=== PATIENT | female | born 1995 | race Caucasian/White ===

== ENCOUNTER 2016-11-09 21:19 | Emergency (ER) | payer MEDICAID ==
[2016-11-09 23:39] VITALS: BP 148/101
== END 2016-11-09 23:39 | disposition home or self-care (01) ==
LOC: ED 21:19
DX: S93.492A Sprain of other ligament of left ankle, initial encounter (principal); R03.0 Elevated blood-pressure reading, without diagnosis of hypertension; X50.1XXA Overexertion from prolonged static or awkward postures, initial encounter; Y93.39 Activity, other involving climbing, rappelling and jumping off; Y92.34 Swimming pool (public) as the place of occurrence of the external cause; Y99.8 Other external cause status
CPT/HCPCS: Q0092

== ENCOUNTER 2017-01-22 01:38 | Emergency (ER) | payer MEDICAID ==
[2017-01-22 02:37] VITALS: BP 148/92
== END 2017-01-22 02:37 | disposition home or self-care (01) ==
LOC: ED 01:38
DX: H60.92 Unspecified otitis externa, left ear (principal)

== ENCOUNTER 2017-01-25 08:42 | Emergency (ER) | payer MEDICAID ==
[~2017-01-25] VITALS: Ht 165.1 cm; Wt 151.9 kg
[2017-01-25 09:07] VITALS: BP 146/103
== END 2017-01-25 09:41 | disposition home or self-care (01) ==
LOC: ED 08:42
DX: H60.92 Unspecified otitis externa, left ear (principal)
CPT/HCPCS: J1170; Q0162

== ENCOUNTER 2017-07-12 01:48 | Inpatient (IN) | payer MEDICAID ==
[~2017-07-12] VITALS: Ht 165.1 cm; Wt 131.5 kg
[2017-07-12 01:59] VITALS: Ht 165.1 cm; Wt 131.5 kg
[2017-07-12 03:09] LABS: BASOPHIL % 0.7 % (0-2); PLATELET COUNT 294 x10^3mcL (130-400); RED CELL DISTRIBUTION WIDTH 14.2 % (11.5-14.5)
[2017-07-12 03:21] LABS: CALCIUM 8.8 mg/dL (8.5-10.1); CARBON DIOXIDE 24.1 mmol/L (21-32); CHLORIDE SERUM 107 mmol/L (98-107); CREATININE SERUM 0.6 mg/dL (0.6-1.0); GFR1 > 60 mL/min; GLUCOSE SERUM 150 mg/dL (74-106); POTASSIUM SERUM 3.6 mmol/L (3.5-5.1); SODIUM SERUM 143 mmol/L (136-145)
[2017-07-12 03:26] LABS: ALBUMIN 3.6 g/dL (3.4-5.0); ALKALINE PHOSPHATASE 69 U/L (46-116); ALT/SGPT 25 U/L (14-59); AST/SGOT 15 U/L (15-37); BILIRUBIN TOTAL 0.18 mg/dL (0.20-1.00); TOTAL PROTEIN, SERUM 7.8 g/dL (6.4-8.2)
[2017-07-12 04:16] LABS: FREE T4 0.92 ng/dL (0.76-1.46)
[2017-07-12 06:52] VITALS: BP 147/81
[2017-07-12 07:00] LABS: CHOLESTEROL/HDL RATIO 4.1; MAGNESIUM 1.8 mg/dL (1.8-2.4); PHOSPHOROUS 3.4 mg/dL (2.5-4.9)
[2017-07-12 07:11] LABS: T3 TOTAL 1.11 ng/mL
[2017-07-12 07:22] LABS: FREE T4 0.91 ng/dL (0.76-1.46); FREE THYROXINE INDEX 2.3 ug/dL (1.4-4.5)
[2017-07-12 10:33] VITALS: BP 142/77
== END 2017-07-12 11:54 | disposition left against medical advice (07) | DRG 54 ==
LOC: ED 01:48 → DU 05:57
PROVIDERS: Emergency Medicine; Student in an Organized Health Care Education/Training Program
DX: G44.209 Tension-type headache, unspecified, not intractable (principal); E02 Subclinical iodine-deficiency hypothyroidism; R00.0 Tachycardia, unspecified; R04.0 Epistaxis; E78.5 Hyperlipidemia, unspecified
CPT/HCPCS: 84439; J0696; J7030

== ENCOUNTER 2019-01-21 12:29 | Emergency (ER) | payer SELFPAY ==
[~2019-01-21] VITALS: Ht 162.6 cm; Wt 149.7 kg
[2019-01-21 12:38] VITALS: BP 150/83; Ht 162.6 cm; Wt 149.7 kg
== END 2019-01-21 14:00 | disposition home or self-care (01) ==
LOC: ED 12:29
DX: L70.0 Acne vulgaris (principal)

== ENCOUNTER 2019-06-11 23:48 | Emergency (ER) | payer OTHER ==
[~2019-06-11] VITALS: Ht 162.6 cm; Wt 155.6 kg
[2019-06-11 23:52] VITALS: Ht 162.6 cm; Wt 155.6 kg
[2019-06-12 02:15] VITALS: BP 142/84
== END 2019-06-12 02:15 | disposition home or self-care (01) ==
LOC: ED 23:48
DX: S30.0XXA Contusion of lower back and pelvis, initial encounter (principal); V49.9XXA Car occupant (driver) (passenger) injured in unspecified traffic accident, initial encounter; Y93.I9 Activity, other involving external motion; Y92.413 State road as the place of occurrence of the external cause; Y99.8 Other external cause status